=== PATIENT | male | born 1950 | race Caucasian/White ===

== ENCOUNTER 2016-11-21 15:41 | Emergency (ER) | payer MEDICARE ==
[~2016-11-21] VITALS: Ht 190.5 cm; Wt 120.9 kg
[2016-11-21] MEDS ORDERED: SODIUM CHLORIDE FLUSH 3 ML SYR IV ONE (15:55)
[2016-11-21] MEDS ORDERED: SODIUM CHLORIDE FLUSH 10 ML SYR IV PRN (15:55)
[2016-11-21] MEDS ORDERED: ONDANSETRON 2 MG/ML (Z0FRAN) 2 ML VIAL IV ONE (15:55)
[2016-11-21 16:09] LABS: BASOPHILS % (AUTO) 0 % (0-2); EOSINOPHILS % (AUTO) 0 % (0-4); LYMPHOCYTES # (AUTO) 0.6 X10^3; MEAN CORPUSCULAR HEMOGLOBIN 29.7 PG (26.0-34.0); MEAN CORPUSCULAR HGB CONC 32.9 g/dL (31.0-37.0); MEAN CORPUSCULAR VOLUME 90 FL (80-100); MEAN PLATELET VOLUME 12.5 FL (6.0-9.5); MONOCYTES # (AUTO) 1.6 X10^3; MONOCYTES % (AUTO) 12 % (3-11); NEUTROPHILS # (AUTO) 11.8 X10^3; NEUTROPHILS % (AUTO) 84 % (51-67); PLATELET COUNT 133 10^3uL (150-450); WHITE BLOOD COUNT 14.04 10^3uL (4.0-11.0)
[2016-11-21 16:23] LABS: ALBUMIN 3.8 g/dL (3.4-5.0); ALKALINE PHOSPHATASE 79 U/L (38-126); ANION GAP 15.3 MEQ/L (3-15); BUN/CREATININE RATIO 18 (10-20); CALCULATED IONIZED CALCIUM 3.7 mg/dL (3.8-4.6); TOTAL PROTEIN 7.6 g/dL (6.4-8.5)
[2016-11-21] MEDS ORDERED: PIPERACILLIN/TAZOBACTAM 3.375 GM in SODIUM CHLORIDE 50 ML IV ONE (16:25)
[2016-11-21 16:41] LABS: CREATINE KINASE 9432 U/L (55-170)
[2016-11-21 17:21] LABS: GLUCOSE, URINE (UA) Negative (Negative); LEUKOCYTE ESTERASE ,URINE Negative (Negative); PH,URINE 5.5 (5.0 - 8.0); UROBILINOGEN,URINE 0.2 mg/dL (0.2-1.0)
[2016-11-21 17:24] LABS: BILIRUBIN,URINE 1+ (Negative); COLOR,URINE Dark Yellow
[2016-11-21 17:25] LABS: CLARITY,URINE Cloudy
--- NOTE | 2016-11-21 17:25 | Diagnostic Imaging Report ---
CLINICAL INDICATION: Patient with confusion. Patient fell 12 hours prior and complains of headache. EXAM: Axial CT scan of the brain performed without IV contrast. Sagittal and coronal reformatted images were created. COMPARISON: None. FINDINGS: There is no evidence of acute cerebral infarct, intracranial hemorrhage, or gross mass effect. There are patchy and confluent areas of low-attenuation white matter changes seen throughout both cerebral hemispheres. There is a prominent roughly 3.0 cm x 2.2 cm area of low density seen in the right parietal region which is more pronounced than the left side. Otherwise, there is normal rausch-white matter distinction. The brain parenchymal volume appears appropriate for patient's age. There is no significant midline shift or herniation. There is no evidence of hydrocephalus. The basal cisterns are unremarkable. The skull, extracranial soft tissue, and orbits are unremarkable. The paranasal sinuses are unremarkable. IMPRESSION: 1: There is no evidence of intracranial hemorrhage, hydrocephalus, or brain herniation. 2: There is an ill-defined 3 cm area of low attenuation involving the parietal lobe periventricular region which is nonspecific. It is unknown if this represents chronic ischemic changes versus other underlying abnormality. Comparison with prior brain imaging would help better evaluate. If none are available, then MRI of the brain with and without IV contrast is suggested for further evaluation. 3: Diffuse chronic small vessel ischemic disease and leukoaraiosis. Dictated by: Dictated on workstation # [id number]
--- NOTE | 2016-11-21 17:25 | Diagnostic Imaging Report ---
INDICATION: Hypoxemia. EXAMINATION: Portable chest at 04:54 p.m. FINDINGS: Heart size and pulmonary vascularity are normal. Lungs are clear. There are no effusions or pneumothoraces. IMPRESSION: Negative chest. Dictated by: Dictated on workstation # [id number]
[2016-11-21 17:29] LABS: AMORPHOUS SEDIMENT,UR 1+ /HPF; URINE CENTRIFUGED VOLUME 12 mL
[2016-11-21 17:32] LABS: AMPHETAMINE SCREEN, URINE Negative (Negative); CANNABINOID SCREEN, URINE Negative (Negative); METHAMPHETAMINE SCREEN URINE S NEGATIVE (NEGATIVE); OPIATE SCREEN URINE Negative (Negative); PROPOXYPHENE STAT NEGATIVE (NEGATIVE)
[2016-11-21] MEDS ORDERED: VANCOMYCIN 1,000 MG in SODIUM CHLORIDE 250 ML IV ONE (18:05)
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
[2016-11-21] MEDS ORDERED: HYDROmorphone 1 MG/ML (DILAUDID) SYRINGE IV ONE (18:10)
--- NOTE | 2016-11-21 18:31 | NUR ---
ems called at 1814
[2016-11-21] MEDS ORDERED: BISO5TAB PO (18:32)
[2016-11-21] MEDS ORDERED: [UNRECOGNIZED DRUG - OTHER] PO (18:32)
[2016-11-21] MEDS ORDERED: ACET-93 PO (18:32)
[2016-11-21] MEDS ORDERED: MNTL10T PO (18:32)
[2016-11-21] MEDS ORDERED: MELO-249 PO (18:32)
[2016-11-21] MEDS ORDERED: LSNP20T PO (18:32)
[2016-11-21] MEDS ORDERED: ATOR20TA PO (18:32)
[2016-11-21] MEDS ORDERED: DIPH25TA29 PO (18:32)
--- NOTE | 2016-11-21 19:00 | NUR ---
ANOTHER LITER OF NS STARTED AT 100ML/HR PER DR BAKER. THE ORIGINAL ORDER WAS FOR 100ML/HR WHICH WAS CHANGED TO 999ML/HR BOLUS D/T PT LOW BP. WE WERE NOT INTENDING TO HANG ANOTHER LITER OF FLUIDS, BUT D/T LOW BP AGAIN PRIOR TO TRANSFER, ORDERED THE SECOND LITER AT 100ML/HR DURING TRANSPORT. THE ORIGINAL ADMINISTRATION OF NS 1000ML AT 100ML/HR AT 1618 IS INCORRECT.
[2016-11-21 19:02] VITALS: BP 93/54
--- NOTE | 2016-11-21 19:08 | NUR ---
PTS , FANI, NOTIFIED OF PHONE NUMBER TO [facility] WHERE PT IS BEING TRANSFERRED.
== END 2016-11-21 19:00 | disposition short-term general hospital (02) ==
LOC: ED 15:42
DX: A41.9 Sepsis, unspecified organism (principal); M62.82 Rhabdomyolysis; F17.210 Nicotine dependence, cigarettes, uncomplicated; T36.3X6A Underdosing of macrolides, initial encounter; Z91.128 Patient's intentional underdosing of medication regimen for other reason
CPT/HCPCS: 36415; 51701; 70450; 71010; 80053; 80307; 81003; 81015; 82550; 82553; 83605; 83880; 84484; 85025; 85610; 86140; 87040; 87486; 87581; 87633; 87798; 93005; 96365; 96367; 96375; 99284; G0480; J1170; J2405; J2543; J3370; J7030; J7050; 80320; 93010; 99285

== ENCOUNTER → 2016-11-21 | Outpatient (CLI) | payer MEDICARE ==
[~2016-11-21] MED LIST: ACET-93 PO; ATOR20TA PO; BISO5TAB PO; DIPH25TA29 PO; LSNP20T PO; MELO-249 PO; MNTL10T PO; [UNRECOGNIZED DRUG - OTHER] PO
== END ==
LOC: EMS 15:33
PROVIDERS: ATTEND Family Medicine
DX: R07.89 Other chest pain (principal); M62.82 Rhabdomyolysis; A41.9 Sepsis, unspecified organism; R53.1 Weakness; R50.9 Fever, unspecified; R19.7 Diarrhea, unspecified